=== PATIENT | female | born 1990 | race Caucasian/White ===

== ENCOUNTER 2023-04-08 21:21 | Emergency (ER) | payer SELFPAY ==
[2023-04-08 21:35] VITALS: BMI 28.3
[2023-04-08 22:48] LABS: BASO % 0.3 % (0-2.0); HEMATOCRIT 36.7 % (32.4-45.2); HEMOGLOBIN 12.1 GM/dL (10.7-15.3); LYMPH % 16.6 % (8-40); MCH 26.9 pg (25.7-33.7); MEAN CELL VOLUME 81.5 fl (80-96); MEAN PLT VOLUME 9.1 fl (7.5-11.1); MONO % 5.7 % (3.8-10.2); NEUT % 77.4 % (42.8-82.8); PLATELET COUNT 283 10^3/uL (134-434); RDW 16.5 % (11.6-15.6)
[2023-04-08 22:58] LABS: EPI CELLS >36 /uL (0-25.1); HYALINE CASTS 0 /uL (0-3.1); URINE APPEARANCE CLOUDY; URINE BACTERIA 2717 /uL (0-1359); URINE BILIRUBIN NEGATIVE (NEGATIVE); URINE COLOR YELLOW; URINE GLUCOSE (UA) NEGATIVE (NEGATIVE); URINE KETONE TRACE (NEGATIVE); URINE LEUK ESTERASE TRACE (NEGATIVE); URINE NITRITE NEGATIVE (NEGATIVE); URINE PROTEIN NEGATIVE (NEGATIVE); URINE RBC 17 /uL (0-23.9); URINE UROBILINOGEN 0.2 mg/dL (0.2-1.0); URINE WBC 39 /uL (0-25.8)
[2023-04-08 23:18] LABS: HCG,QUALITATIVE URINE Negative
[2023-04-08 23:34] LABS: COCAINE, UR NEGATIVE (NEGATIVE); METHADONE, UR NEGATIVE (NEGATIVE); OPIATES, URI NEGATIVE (NEGATIVE); PHENCYCLIDINE,URINE NEGATIVE (NEGATIVE); URINE AMPHETAMINES NEGATIVE (NEGATIVE); URINE BARBITURATES NEGATIVE (NEGATIVE); URINE BENZODIAZEPINES NEGATIVE (NEGATIVE)
[2023-04-08 23:42] LABS: INR 1.15 (0.83-1.09); PROTHROMBIN TIME (PATIENT) 13.3 SEC (9.7-13.0)
[2023-04-08 23:52] LABS: CHLORIDE 108 mmol/L (98-107); POTASSIUM 3.5 mmol/L (3.5-5.1); SODIUM 139 mmol/L (136-145)
[2023-04-08 23:54] LABS: CALCIUM 8.9 mg/dL (8.5-10.1)
[2023-04-08 23:55] LABS: ALBUMIN 4.1 g/dl (3.4-5.0); ANION GAP 8 mmol/L (4-13); BLOOD UREA NITROGEN 6.9 mg/dL (7-18); CO2 23 mmol/L (21-32); GLUCOSE,RANDOM 105 mg/dL (74-106)
[2023-04-08 23:58] LABS: CREATININE 0.7 mg/dL (0.55-1.3); SGOT/AST 13 U/L (15-37); SGPT/ALT 28 U/L (13-61)
[2023-04-09] LABS: BILIRUBIN,TOTAL 0.4 mg/dL (0.2-1)
[2023-04-09 00:01] LABS: ALK PHOS 123 U/L (45-117)
[2023-04-09] MEDS ORDERED: OLANZapine 7.5 MG TABLET PO ONE (04:44)
[2023-04-09 12:01] VITALS: BP 112/72; PULSE 93; RESP 16; TEMP 98.2
== END 2023-04-09 13:40 | disposition home or self-care (01) ==
LOC: JER 21:21
DX: F29 Unspecified psychosis not due to a substance or known physiological condition (principal); R46.1 Bizarre personal appearance; R41.3 Other amnesia
CPT/HCPCS: 36415; 70450-TC; 80053; 80307; 81003; 84484; 84703; 85025; 85610; 85730; 87086; 93005; 93010; 99285-25